=== PATIENT | female | born 1980 | race Caucasian/White ===

== ENCOUNTER 2016-07-26 19:05 | Emergency (ER) | payer OTHER ==
[2016-07-26 19:22] VITALS: BMI 26.6
[2016-07-26 19:25] VITALS: BP 130/74; PULSE 75; RESP 17; TEMP 98; O2SAT 99
--- NOTE | 2016-07-26 20:15 | ED PDOC ---
Arrival/HPI - General Chief Complaint: Breast Problem Time Seen by Provider: 07/26/16 20:03 Historian: Patient - History of Present Illness Narrative History of Present Illness (Text): 07/26/16 20:19 36-year-old female presents today with right breast pain. Patient states over the past few days she's been having worsening pain to the right breast. Patient states she had prior breast surgery performed by the breast specialist in [facility]. Patient states it was not cancer but she's not sure what the lump was that she had in the breast at that time. Patient states she's noticed occasional black discharge coming from the breast. Patient denies fevers or chills. Denies redness or swelling. Patient denies . No other complaints. Past Medical History - Provider Review Nursing Documentation Reviewed: Yes - Travel History Have you recently traveled outside [place] w/in the past 3 mons?: No - Infectious Disease Hx of Infectious Diseases: None - Tetanus Immunization Tetanus Immunization: Unknown - Cardiac Hx Hypertension: Yes - Psychiatric Hx Substance Use: No - Surgical History Other/Comment: breast surgery Family/Social History - Physician Review Nursing Documentation Reviewed: Yes Family/Social History: Unknown Family HX Smoking Status: Unknown If Ever Smoked Hx Alcohol Use: No Hx Substance Use: No Allergies/Home Meds Allergies/Adverse Reactions: Allergies acetaminophen [From Vicodin] Allergy (Verified 07/26/16 19:22) ANAPHYLAXIS hydrocodone bitartrate [From Vicodin] Allergy (Verified 07/26/16 19:22) ANAPHYLAXIS Review of Systems - Review of Systems Constitutional: absent: Fatigue, Fevers Respiratory: absent: SOB, Cough Cardiovascular: absent: Chest Pain, Palpitations Gastrointestinal: absent: Abdominal Pain, Nausea, Vomiting Genitourinary Female: Other (right breast pain) Skin: Normal. absent: Rash, Pruritis, Skin Lesions, Laceration, Abscess Neurological: absent: Headache, Dizziness Psychiatric: absent: Anxiety, Depression Physical Exam Vital Signs Reviewed: Yes Vital Signs Temp Pulse Resp BP Pulse Ox 07/26/16 19:24 98.0 F 75 17 130/74 99 Temperature: Afebrile Blood Pressure: Normal Pulse: Regular Respiratory Rate: Normal Appearance: Positive for: Well-Appearing, Non-Toxic, Comfortable Pain Distress: None Mental Status: Positive for: Alert and Oriented X 3 - Systems Exam Head: Present: Atraumatic Mouth: Present: Moist Mucous Membranes Neck: Present: Normal Range of Motion Respiratory/Chest: Present: Clear to Auscultation, Good Air Exchange. No: Respiratory Distress, Accessory Muscle Use Cardiovascular: Present: Regular Rate and Rhythm, Normal S1, S2. No: Murmurs Breast/Axillary: Present: Symmetrical, Tender to Palpation (+ ttp over right breast;). No: Discoloration, Erythema, Fluctuance, Masses, Nipple Discharge, Swelling Upper Extremity: Present: Normal ROM Lower Extremity: Present: Normal ROM Skin: Present: Warm, Dry, Normal Color. No: Rashes Psychiatric: Present: Alert Medical Decision Making ED Course and Treatment: 07/26/16 20:14 36-year-old female with right breast pain. No edema no erythema and no ecchymosis. Breasts are symmetric. No signs of abscess or cellulitis. Toradol ordered for pain. Patient refused I will provide the patient that she must see the breast surgeon. Patient states she has a breast surgeon that she sees a [facility] [place] that she will follow-up with. I advised the patient that she may need mammography and/or ultrasound for further evaluation of the breast to rule out the possibility of cancer. I stressed again immediate follow-up with the breast surgeon. Patient verbalizes understanding of discharge instructions and need for immediate followup. all aspects of this case were discussed the attending of record. Impression: Breast pain motrin every 6 hours as needed for pain keflex; 1 capsule 4 times daily x 7 days FOLLOW UP WITH YOUR PRIMARY CARE PHYSICIAN SOON POSSIBLE FOLLOW UP WITH THE BREAST SPECIALIST SOON POSSIBLE. Return immediately if signs of infection develop; high fevers,increasing pain, redness, swelling or purulent discharge. Return if any other concerning symptoms develop. - Medication Orders Current Medication Orders: Discontinued Medications Ketorolac Tromethamine (Toradol) 60 mg IM STAT STA Stop: 07/26/16 20:17 Last Admin: 07/26/16 20:20 Dose: Disposition/Present on Arrival - Present on Arrival Any Indicators Present on Arrival: No History of DVT/PE: No History of Uncontrolled Diabetes: No Urinary Catheter: No History of Decub. Ulcer: No History Surgical Site Infection Following: None - Disposition Have Diagnosis and Disposition been Completed?: Yes Diagnosis: Breast pain Disposition: HOME/ ROUTINE Disposition Time: 20:13 Patient Plan: Discharge Condition: GOOD Additional Instructions: motrin every 6 hours as needed for pain keflex; 1 capsule 4 times daily x 7 days FOLLOW UP WITH YOUR PRIMARY CARE PHYSICIAN SOON POSSIBLE FOLLOW UP WITH THE BREAST SPECIALIST SOON POSSIBLE. Return immediately if signs of infection develop; high fevers,increasing pain, redness, swelling or purulent discharge. Return if any other concerning symptoms develop. Prescriptions: Cephalexin [Keflex] 500 mg PO QID #28 capsule Ibuprofen [Motrin] 600 mg PO Q6H PRN #20 tab PRN Reason: pain/fever reduction Referrals: Feliberto Maria MD [Primary Care Provider] - Follow up with primary Carlo Miller MD [Staff Provider] - Follow up with primary Bry Encarnacion MD [Medical Doctor] - Follow up with primary Forms: WORK NOTE
== END 2016-07-26 20:22 | disposition home or self-care (01) ==
LOC: ED 19:05
DX: N64.4 Mastodynia (principal)

== ENCOUNTER 2017-12-14 06:05 | Emergency (ER) | payer OTHER ==
--- NOTE | 2017-12-14 06:14 | ED PDOC ---
Arrival/HPI - General Time Seen by Provider: 12/14/17 06:12 Historian: Patient - History of Present Illness Narrative History of Present Illness (Text): 12/14/17 06:13 Arelis Eldridge is a 37 year old female who presents to the emergency department brought in by EMS for bizarre behavior. As per EMS, patient was found standing outside a pharmacy with increasingly bizarre behavior. EMS state patient was confused, only responding questions with "I don't know," and unable to recall her name or address. On arrival, patient is awake and mildly confused. Patient reports she does not know why she was brought to the hospital and denies any alcohol or drug abuse. Patient also denies any chest pain, abdominal pain, nausea, vomiting, or any other complaints. Symptom Onset: Gradual Symptom Course: Unchanged Activities at Onset: Light Context: Street Past Medical History - Provider Review Nursing Documentation Reviewed: Yes - Infectious Disease Hx of Infectious Diseases: None - Tetanus Immunization Tetanus Immunization: Unknown - Cardiac Hx Hypertension: Yes - Psychiatric Hx Substance Use: No - Surgical History Other/Comment: breast surgery Family/Social History - Physician Review Nursing Documentation Reviewed: Yes Family/Social History: Unknown Family HX Smoking Status: Unknown If Ever Smoked Hx Alcohol Use: No Hx Substance Use: No Allergies/Home Meds Allergies/Adverse Reactions: Allergies acetaminophen [From Vicodin] Allergy (Verified 12/14/17 06:32) ANAPHYLAXIS hydrocodone bitartrate [From Vicodin] Allergy (Verified 12/14/17 06:32) ANAPHYLAXIS Home Medications: Home Meds Medication Instructions Recorded Confirmed Unobtainable 12/14/17 12/14/17 Review of Systems - Review of Systems Systems not reviewed;Unavailable: Altered Mental Status Constitutional: absent: Fevers ENT: absent: Rhinorrhea Respiratory: absent: SOB, Cough Cardiovascular: absent: Chest Pain Gastrointestinal: absent: Abdominal Pain, Diarrhea, Nausea Genitourinary Female: absent: Dysuria, Frequency, Hematuria, Urine Output Changes Musculoskeletal: absent: Back Pain, Neck Pain Skin: absent: Rash Neurological: absent: Headache, Dizziness Physical Exam Vital Signs Reviewed: Yes Vital Signs Temp Pulse Resp BP Pulse Ox 12/14/17 10:03 70 18 138/78 99 12/14/17 07:55 84 18 125/78 100 12/14/17 06:29 98.7 F 90 18 129/82 100 Temperature: Afebrile Blood Pressure: Normal Pulse: Regular Respiratory Rate: Normal Appearance: Positive for: Well-Appearing, Non-Toxic, Comfortable Pain Distress: None Mental Status: Positive for: Confused (Mildly confused) - Systems Exam Head: Present: Atraumatic, Normocephalic Pupils: Present: PERRL Extroacular Muscles: Present: EOMI Conjunctiva: Present: Normal Mouth: Present: Moist Mucous Membranes Neck: Present: Normal Range of Motion Respiratory/Chest: Present: Clear to Auscultation, Good Air Exchange. No: Respiratory Distress, Accessory Muscle Use Cardiovascular: Present: Regular Rate and Rhythm, Normal S1, S2. No: Murmurs Abdomen: No: Tenderness, Distention, Peritoneal Signs Back: Present: Normal Inspection Upper Extremity: Present: Normal Inspection. No: Cyanosis, Edema Lower Extremity: Present: Normal Inspection. No: Edema Neurological: Present: GCS=15, CN II-XII Intact, Speech Normal Skin: Present: Warm, Dry, Normal Color. No: Rashes Psychiatric: Present: Alert Medical Decision Making ED Course and Treatment: 12/14/17 06:14 Impression: 37 year old female brought in for bizarre behavior. Plan: -- Labs, alcohol level -- Urinalysis, urine drug screen -- Reassess and disposition Progress Notes: - Lab Interpretations Lab Results: 12/14/17 06:03 12/14/17 06:03 Lab Results 12/14/17 08:25: Urine HCG, Qual Negative 12/14/17 08:25: Urine Opiates Screen Negative, Urine Methadone Screen Negative, Ur Barbiturates Screen Negative, Ur Phencyclidine Scrn Positive H, Ur Amphetamines Screen Negative, U Benzodiazepines Scrn Negative, U Oth Cocaine Metabols Negative, U Cannabinoids Screen Positive H 12/14/17 08:25: Urine Color Yellow, Urine Appearance Clear, Urine pH 6.0, Ur Specific [place] >= 1.030, Urine Protein 30 H, Urine Glucose (UA) Negative, Urine Ketones 15 H, Urine Blood Negative, Urine Nitrate Negative, Urine Bilirubin Small H, Urine Urobilinogen 1.0 H, Ur Leukocyte Esterase Trace H, Urine RBC 1 - 3, Urine WBC 5 - 10, Ur Epithelial Cells 6 - 8, Amorphous Sediment Few, Urine Bacteria Many, Urine Other Uyeast 12/14/17 06:03: Alcohol, Quantitative < 10 08/16/18 06:03: Salicylates < 1 L, Acetaminophen < 10.0 L 12/14/17 06:03: Sodium 146, Potassium 3.0 L, Chloride 107, Carbon Dioxide 24, Anion Gap 17, BUN 15, Creatinine 0.7, Est GFR ( Amer) > 60, Est GFR (Non- Af Amer) > 60, Random Glucose 110, Calcium 9.8, Magnesium 2.0, Total Bilirubin 0.4, AST 15, ALT 20, Alkaline Phosphatase 72, Total Creatine Kinase 41, Total Protein 8.0, Albumin 4.6, Globulin 3.3, Albumin/Globulin Ratio 1.4 12/14/17 06:03: WBC 8.1, RBC 4.18, Hgb 12.2, Hct 37.5, MCV 89.7, MCH 29.2, MCHC 32.5, RDW 14.4, Plt Count 289, MPV 11.8 H, Gran % 75.1 H, Lymph % (Auto) 18.9 L , [place] % (Auto) 5.8, Eos % (Auto) 0.1 L, Baso % (Auto) 0.1, Gran # 6.07, Lymph # (Auto) 1.5, [place] # (Auto) 0.5, Eos # (Auto) 0.0, Baso # (Auto) 0.01 - RAD Interpretation Radiology Orders: 12/14/17 08:03 HEAD W/O CONTRAST [CT] Stat - Medication Orders Current Medication Orders: Discontinued Medications Potassium Chloride (K-Dur 20 Meq Er Tab) 40 meq PO STAT STA Stop: 12/14/17 07:34 Last Admin: 12/14/17 08:12 Dose: 40 meq - Transfer of Care Patient signed out to Dr:: missy labs and dispo - Scribe Statement The provider has reviewed the documentation as recorded by the Scriblalito Leija Provider Scribe Attestation: All medical record entries made by the Scribe were at my direction and personally dictated by me. I have reviewed the chart and agree that the record accurately reflects my personal performance of the history, physical exam, medical decision making, and the department course for this patient. I have also personally directed, reviewed, and agree with the discharge instructions and disposition. Disposition/Present on Arrival - Present on Arrival Any Indicators Present on Arrival: No History of DVT/PE: No History of Uncontrolled Diabetes: No Urinary Catheter: No History Surgical Site Infection Following: None - Disposition Have Diagnosis and Disposition been Completed?: Yes Diagnosis: Altered mental status, Drug use, PCP (phencyclidine) abuse Disposition: HOME/ ROUTINE Disposition Time: 07:00 Condition: IMPROVED Discharge Instructions (ExitCare): Drug Abuse and Drug Addiction (DC) Additional Instructions: ARELIS ELDRIDGE, thank you for letting us take care of you today. Your provider was Thomas Sheikh DO and you were treated for PCP and THC Drug Use. The emergency medical care you received today was directed at your acute symptoms. If you were prescribed any medication, please fill it and take as directed. It may take several days for your symptoms to resolve. Return to the Emergency Department if your symptoms worsen, do not improve, or if you have any other problems. Please contact your doctor or call one of the physicians/clinics you have been referred to that are listed on the Patient Visit Information form that is included in your discharge packet. Bring any paperwork you were given at discharge with you along with any medications you are taking to your follow up visit. Our treatment cannot replace ongoing medical care by a primary care provider outside of the emergency department. Thank you for allowing the [facility] team to be part of your care today. If you had an X-Ray or CT scan: A Radiologist will review the ED reading if any change in treatment is needed we will contact you. If you had a blood, urine, or wound culture: It will take several days for the results, if any change in treatment is needed we will contact you. If you had an STI test: It will take 48 hours for the results. Please call after 1 week if you have not heard back. Referrals: [facility] [Outside] - Follow up with primary Feliberto Mraia MD [Primary Care Provider] - Follow up with primary Forms: [employer] ([place]an), WORK NOTE
[2017-12-14 06:29] VITALS: BMI 25.2
[2017-12-14 06:32] VITALS: RESP 18; TEMP 98.7
[2017-12-14 07:06] LABS: BASO # 0.01 K/mm3 (0.0-2.0); BASO % 0.1 % (0.0-3.0); EOS % 0.1 % (1.5-5.0); GRAN # 6.07 (1.4-6.5); GRAN % 75.1 % (50.0-68.0); HEMOGLOBIN 12.2 g/dL (12.0-16.0); LYMPH # 1.5 (1.2-3.4); LYMPH % 18.9 % (22.0-35.0); MEAN CELL VOLUME 89.7 fl (80.0-105.0); MEAN CORPUSCULAR HEMOGLOBIN 29.2 pg (25.0-35.0); MEAN CORPUSCULAR HGB CONC 32.5 g/dl (31.0-37.0); MEAN PLATELET VOLUME 11.8 fl (7.0-11.0); MONO # 0.5 (0.1-0.6); MONO % 5.8 % (1.0-6.0); RBC 4.18 10^6/uL (3.5-6.1); RED CELL DISTRIBUTION WIDTH 14.4 % (11.5-14.5); WHITE BLOOD COUNT 8.1 10^3/ul (4.5-11.0)
[2017-12-14 07:14] LABS: ACETAMINOPHEN < 10.0 ug/ml (10.0-20.0); SALICYLATE < 1 mg/dL (2.0-20.0)
[2017-12-14 07:18] LABS: ALB/GLOB RATIO 1.4 (1.1-1.8); ALBUMIN 4.6 g/dL (3.0-4.8); ALT/SGPT 20 U/L (7-56); AST/SGOT 15 U/L (14-36); BLOOD UREA NITROGEN 15 mg/dL (7-21); CALCIUM 9.8 mg/dL (8.4-10.5); GFR AFRICAN-AMERICAN > 60; GFR NON-AFRICAN AMERICAN > 60
[2017-12-14] MEDS ORDERED: Potassium Chloride 20 mEq ER Tab PO STA (07:33)
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
[2017-12-14 08:48] LABS: URINE APPEARANCE CLEAR (CLEAR); URINE BILIRUBIN SMALL (NEGATIVE); URINE BLOOD NEGATIVE (NEGATIVE); URINE COLOR YELLOW (YELLOW); URINE GLUCOSE (UA) NEGATIVE (NEGATIVE); URINE LEUKOCYTE ESTERASE TRACE Leu/uL (NEGATIVE); URINE PROTEIN 30 mg/dL (<30 mg/dL)
[2017-12-14 08:50] LABS: BARBITURATES, UR NEGATIVE (NEGATIVE); BENZODIAZEPINES, UR NEGATIVE (NEGATIVE); OPIATES, UR NEGATIVE (NEGATIVE); PHENCYCLIDINE, UR POSITIVE (NEGATIVE)
--- NOTE | 2017-12-14 08:50 | CT ---
Date of service: 12/14/2017 PROCEDURE: CT HEAD WITHOUT CONTRAST. HISTORY: altered mental status COMPARISON: None available. TECHNIQUE: Axial computed tomography images were obtained through the head/brain without intravenous contrast. Radiation dose: Total exam DLP = 740 mGy-cm. This CT exam was performed using one or more of the following dose reduction techniques: Automated exposure control, adjustment of the mA and/or kV according to patient size, and/or use of iterative reconstruction technique. FINDINGS: HEMORRHAGE: No intracranial hemorrhage. BRAIN: No mass effect or edema. No atrophy or chronic microvascular ischemic changes. VENTRICLES: Unremarkable. No hydrocephalus. CALVARIUM: Unremarkable. PARANASAL SINUSES: Unremarkable as visualized. No significant inflammatory changes. MASTOID AIR CELLS: Unremarkable as visualized. No inflammatory changes. OTHER FINDINGS: The report concurs with the preliminary [facility] report IMPRESSION: Normal CT of the Head.
[2017-12-14 08:56] LABS: URINE AMORPHOUS SEDIMENT FEW; URINE BACTERIA MANY (NEG)
[2017-12-14 10:03] VITALS: BP 138/78; PULSE 70; O2SAT 99
== END 2017-12-14 10:53 | disposition home or self-care (01) ==
LOC: ED 06:05
DX: R41.82 Altered mental status, unspecified (principal); F16.10 Hallucinogen abuse, uncomplicated